=== PATIENT | female | born 1980 ===

== ENCOUNTER 2020-11-21 09:49 | Inpatient (IN) ==
[2020-11-15 12:58] LABS: Basophils % 0.3 % (0.0-0.8); Eosinophils # 0.1 10*3/uL (0.0-0.87); Eosinophils % 1.9 % (0.00-10.9); Hematocrit 35.6 VOL% (35.7-47.0); Hemoglobin 11.7 GM/DL (12.0-16.0); Immature Granulocytes % 0.3 %; Immature Granulocytes Absolute 0.02 #; Lymphocytes # 1.6 10*3/uL (1.4-4.0); Lymphocytes % 25.9 % (21.3-54.2); Mean Corpuscular HGB Conc 32.9 GM/DL (32-36); Mean Corpuscular Volume 90.6 FL (87-102); Mean Platelet Volume 9.2 FL (9.6-12.0); Monocytes % 4.9 % (1.7-12.7); Neutrophils % 66.7 % (38.7-73.9); Platelet Count 283 T/CUMM (130-400); Red Blood Count 3.93 MC/CUMM (3.8-5.5); Red Cell Distribution Width 13.2 % (9.3-17.3); White Blood Count 6.3 T/CUMM (4-12)
[2020-11-15 13:09] LABS: Bilirubin,Urine Negative (Negative); Blood, Urine Negative (Negative); Glucose,Urine (UA) Negative (Negative); Ketones,Urine Negative (Negative); Mucus,Urine Occasional /LPF (Occasional); Nitrite,Urine Negative (Negative); Protein,Urine Negative; RBC,Urine <1 /HPF (0-4); Squamous Epithelial Cell,Urine Occasional /HPF (0-10); Urine Appearance CLEAR (Clear); Urine Color Yellow (Yellow); Urine Specific Gravity 1.021 (1.001-1.035); Urine Urobilinogen < 2.0 EU/DL (0.2-1.0); WBC,Urine 1 /HPF (0-6)
[2020-11-15 13:21] LABS: Alanine Aminotransferase 30 U/L (13-56); Albumin 3.4 G/DL (3.4-5.0); Alkaline Phosphatase 90 U/L (45-117); Aspartate Amino Transferase 18 U/L (0-37); Bilirubin,Total < 0.39 MG/DL (0.2-1.0); Blood Urea Nitrogen 19 MG/DL (7-18); Calcium 8.1 MG/DL (8.5-10.1); Carbon Dioxide 24 MMOL/L (21-32); Estimated Glom Filtration Rate 120 ML/MIN; Glucose 91 MG/DL (74-106); HDL Cholesterol 63 MG/DL (40-60); Potassium 3.8 MMOL/L (3.5-5.1); Sodium 143 MMOL/L (136-145); Total Protein 7.3 G/DL (6.4-8.3); Triglycerides 84 MG/DL (2-150); VLDL CHOLESTEROL 16.8 MG/DL
[2020-11-15 14:35] LABS: HIV Antigen/Antibody Result Nonreactive (Nonreactive)
[~2020-11-21 09:49] MED LIST: AMPICILLIN/SULBACTAM 3,000 MG in SODIUM CHLORIDE 0.9% 100 ML IV ONE
[2020-11-21] MEDS ORDERED: DIAZEPAM 5 MG TABLET PO ONE (10:59)
[2020-11-21] MEDS ORDERED: FAMOTIDINE 20 MG TABLET PO ONE (10:59)
[2020-11-21] MEDS ORDERED: LACTATED RINGERS 1,000 ML IV SCH ×2 (11:00→16:00)
[2020-11-21] MEDS ORDERED: MIDAZOLAM 2 MG/2 ML VIAL ONE (12:47)
[2020-11-21] MEDS ORDERED: LIDOCAINE 2% 5 ML VIAL ONE ×2 (12:47→13:33)
[2020-11-21] MEDS ORDERED: BUPIVACAINE MPF 0.25% 30 ML VIAL ONE (12:47)
[2020-11-21] MEDS ORDERED: fentaNYL 100 MCG/2 ML VIAL ONE (12:47)
[2020-11-21] MEDS ORDERED: DEXAMETHASONE 4 MG/1 ML VIAL ONE ×4 (12:47→15:50)
[2020-11-21] MEDS ORDERED: ONDANSETRON 4 MG/2 ML VIAL ONE (13:32)
[2020-11-21] MEDS ORDERED: ROCURONIUM 50 MG/5 ML VIAL IV ONE ×2 (13:32→14:37)
[2020-11-21] MEDS ORDERED: propofoL 200 MG/20 ML VIAL IV ONE (13:32)
[2020-11-21] MEDS ORDERED: SEVOFLURANE 1 UNIT/15 MINUTE INH ONE ×7 (13:33→15:51)
[2020-11-21] MEDS ORDERED: ACETAMINOPHEN 1,000 MG/100 ML VIAL IV ONE (14:07)
[2020-11-21] MEDS ORDERED: GLYCOPYRROLATE 0.4 MG/2 ML VIAL ONE (14:32)
[2020-11-21] MEDS ORDERED: NEOSTIGMINE 10 MG/10 ML VIAL ONE (14:32)
[2020-11-21] MEDS ORDERED: LACTATED RINGERS 1,000 ML IV ONE (15:07)
[2020-11-21] MEDS ORDERED: KETOROLAC 30 MG/1 ML VIAL ONE (15:13)
[2020-11-21] MEDS ORDERED: DEXMEDETOMIDINE 200 MCG/2 ML VIAL ONE (15:18)
[2020-11-21] MEDS ORDERED: BISACODYL 10 MG SUPP RECTAL PRN (15:39)
[2020-11-21] MEDS ORDERED: DOCUSATE SODIUM 100 MG CAPSULE PO PRN (15:39)
[2020-11-21] MEDS ORDERED: BENZOCAINE/MENTHOL LOZENGE 18/BOX PO PRN (15:39)
[2020-11-21] MEDS ORDERED: ACETAMINOPHEN 325 MG TABLET PO PRN (15:39)
[2020-11-21] MEDS ORDERED: ONDANSETRON 4 MG/2 ML VIAL IV PRN ×2 (15:39→16:04)
[2020-11-21] MEDS ORDERED: HYDROmorphone 2 MG/1 ML VIAL IV PRN (15:40)
[2020-11-21] MEDS: HYDROmorphone 2 MG/1 ML VIAL IV PRN ×3 (15:53→16:15)
[2020-11-21 16:00] LABS: Bilirubin,Urine Negative (Negative); Blood, Urine Negative (Negative); Glucose,Urine (UA) Negative (Negative); Ketones,Urine Negative (Negative); Mucus,Urine Occasional /LPF (Occasional); Nitrite,Urine Negative (Negative); Protein,Urine Negative; RBC,Urine <1 /HPF (0-4); Squamous Epithelial Cell,Urine Occasional /HPF (0-10); Urine Appearance CLEAR (Clear); Urine Color Straw (Yellow); Urine Urobilinogen < 2.0 EU/DL (0.2-1.0); WBC,Urine 1 /HPF (0-6)
[2020-11-21] MEDS ORDERED: INFLUENZA VIRUS VACCINE 0.5 ML SYRINGE IM ONE (17:01)
[2020-11-21] MEDS: ceFAZolin 1,000 MG in SYRINGE 1 EACH IV SCH (21:55)
[2020-11-21] MEDS: IBUPROFEN 800 MG TABLET PO PRN (22:03)
[2020-11-21 23:16] LABS: Basophils % 0.1 % (0.0-0.8); Hematocrit 35.3 VOL% (35.7-47.0); Hemoglobin 11.4 GM/DL (12.0-16.0); Immature Granulocytes % 0.4 %; Immature Granulocytes Absolute 0.07 #; Lymphocytes # 0.6 10*3/uL (1.4-4.0); Mean Corpuscular HGB Conc 32.3 GM/DL (32-36); Mean Corpuscular Volume 89.1 FL (87-102); Mean Platelet Volume 8.6 FL (9.6-12.0); Monocytes % 1.6 % (1.7-12.7); Neutrophils % 93.9 % (38.7-73.9); Platelet Count 284 T/CUMM (130-400); Red Blood Count 3.96 MC/CUMM (3.8-5.5); Red Cell Distribution Width 12.8 % (9.3-17.3); White Blood Count 15.9 T/CUMM (4-12)
[2020-11-21 23:47] LABS: Lymphocytes 3 % (20-55); Segmented Neutrophils 95 % (50-85); Total Cells Counted 100
[2020-11-21 23:49] LABS: Microcytosis Slight; Platelet Estimate Adequate; Schistocytes Few
[2020-11-22] MEDS: ceFAZolin 1,000 MG in SYRINGE 1 EACH IV SCH (05:41)
[2020-11-22 06:10] LABS: Basophils % 0.1 % (0.0-0.8); Hematocrit 31.7 VOL% (35.7-47.0); Immature Granulocytes % 0.3 %; Immature Granulocytes Absolute 0.05 #; Lymphocytes % 6.6 % (21.3-54.2); Mean Corpuscular HGB Conc 34.7 GM/DL (32-36); Mean Corpuscular Volume 86.1 FL (87-102); Mean Platelet Volume 8.9 FL (9.6-12.0); Monocytes % 4.3 % (1.7-12.7); Neutrophils % 88.7 % (38.7-73.9); Platelet Count 278 T/CUMM (130-400); Red Blood Count 3.68 MC/CUMM (3.8-5.5); Red Cell Distribution Width 12.9 % (9.3-17.3); White Blood Count 14.3 T/CUMM (4-12)
[2020-11-22] MEDS: METOCLOPRAMIDE 10 MG TABLET PO SCH ×2 (08:24→15:50)
[2020-11-22] MEDS: MAGNESIUM HYDROXIDE SUSP 30 ML UDCUP PO PRN ×2 (08:25→21:10)
[2020-11-22] MEDS: SIMETHICONE CHEW 80 MG TABLET PO PRN ×2 (15:58→23:36)
[2020-11-22] MEDS: IBUPROFEN 800 MG TABLET PO PRN (20:24)
[2020-11-23] MEDS: METOCLOPRAMIDE 10 MG TABLET PO SCH ×3 (00:46→17:00)
[2020-11-23 14:34] VITALS: BP 150/89
[2020-11-23] MEDS: IBUPROFEN 800 MG TABLET PO PRN (15:42)
== END 2020-11-23 16:20 | disposition home or self-care (01) | DRG 743 ==
LOC: N.OR 09:49 → N.SDSINP 09:52 → EDSTATUS 14:45 → N.SDSINP 15:36 → N.OB 16:43
PROVIDERS: ADMIT Obstetrics & Gynecology; ATTEND Obstetrics & Gynecology